=== PATIENT | male | born 1970 | race Caucasian/White ===

== ENCOUNTER 2022-10-11 09:38 | Outpatient (CLI) | payer BC, OTHER | END 2022-10-11 09:39 | disposition home or self-care (01) | LOC: SCSMRI 09:38 | PROVIDERS: ATTEND Otolaryngology Plastic Surgery within the Head & Neck | DX: H90.41 Sensorineural hearing loss, unilateral, right ear, with unrestricted hearing on the contralateral side (principal); H91.20 Sudden idiopathic hearing loss, unspecified ear; H93.11 Tinnitus, right ear | CPT/HCPCS: 70553 ==